=== PATIENT | female | born 1965 | race Caucasian/White ===

== ENCOUNTER → 2023-05-07 | Outpatient (CLI) | payer OTHER | LOC: LAB SHORT 17:13 | DX: N39.0 Urinary tract infection, site not specified (principal) | CPT/HCPCS: 87077; 87086; 87186 ==

== ENCOUNTER 2023-12-18 11:28 | Observation (INO) | payer OTHER ==
[~2023-12-18] VITALS: Ht 167.6 cm; Wt 89.5 kg
[2023-12-18 11:56] LABS: BASOPHILS ABSOLUTE AUTO 0.04 K/mm3 (0.00-0.23); BASOPHILS PERCENT AUTO 1 % (0-2); EOSINOPHILS ABSOLUTE AUTO 0.34 K/mm3 (0.00-0.68); EOSINOPHILS PERCENT AUTO 4 % (0-6); Hematocrit 45.3 % (33.0-51.0); Hemoglobin 15.1 g/dL (11.5-16.0); IMMATURE GRAN ABSOLUTE AUTO 0.02 K/mm3 (0.00-0.10); IMMATURE GRAN PERCENT AUTO 0 % (0-1); LYMPHOCYTES ABSOLUTE AUTO 2.65 K/mm3 (0.84-5.20); LYMPHOCYTES PERCENT AUTO 32 % (21-46); MONOCYTES ABSOLUTE AUTO 0.34 K/mm3 (0.16-1.47); MONOCYTES PERCENT AUTO 4 % (4-13); Mean Corpuscular HGB 30.3 pg (26.0-34.0); Mean Corpuscular HGB Conc 33.3 g/dL (31.5-36.5); Mean Corpuscular Volume 91 fL (80-100); Mean Platelet Volume 10.6 fL (9.1-12.4); NEUTROPHILS ABSOLUTE AUTO 4.79 K/mm3 (1.96-9.15); NEUTROPHILS PERCENT AUTO 59 % (41-73); Platelet Count 288 K/mm3 (150-400); RDW Coefficient Variation 14.6 % (11.7-14.2); RDW Standard Deviation 48.4 fL (35.1-46.3); Red Blood Cell Count 4.99 M/mm3 (3.80-5.20); White Blood Cell Count 8.18 K/mm3 (4.00-11.30)
[2023-12-18 12:18] LABS: Albumin/Globulin Ratio 0.9 (0.8-1.8); Bilirubin, Total 0.5 mg/dL (0.1-1.0); Bun/Creatinine Ratio 10.7 (12.0-20.0); Creatinine, Blood 1.21 mg/dL (0.40-1.00); Globulin, Blood 4.3 g/dL (2.2-4.0); Potassium, Blood 3.3 mmol/L (3.5-5.5); Total Protein, Blood 8.3 g/dL (6.4-8.2)
[2023-12-18] MEDS ORDERED: Acetaminophen 500 MG Tab PO ONE (13:05)
[2023-12-18] MEDS ORDERED: Nitroglycerin 0.4 MG SUBL SL PRN (13:05)
[2023-12-18] MEDS ORDERED: DOXAZOSIN MESYLA1 M2 PO (13:31)
[2023-12-18] MEDS ORDERED: DILTIAZEM 24HR240 M3 PO (13:31)
[2023-12-18] MEDS ORDERED: SPIRONOLACTONE25 MG PO (13:32)
[2023-12-18] MEDS ORDERED: FURO40 PO (13:32)
[2023-12-18] MEDS ORDERED: SYNTHROID150 MC1 PO (13:33)
[2023-12-18] MEDS ORDERED: Acetaminophen 325 MG TABLET PO PRN (15:25)
[2023-12-18] MEDS ORDERED: HydrALAZINE HCl 25 MG Tab PO PRN ×2 (15:30→16:10)
[2023-12-18 17:00] VITALS: BP 148/99
[2023-12-18] MEDS ORDERED: Furosemide 40 MG Tab PO SCH (17:00)
[2023-12-18] MEDS ORDERED: Doxazosin Mesylate 2 MG Tab PO SCH (18:00)
--- NOTE | 2023-12-18 18:42 | NUR ---
NEW ADMIT/SHIFT SUMMARY. PATIENT ADMITTED FROM ER AT 1700 FOR CHEST PAIN. PATIENT HAS BEEN HAVING HIGH BP. PATIENT DENIES CHEST PAIN AT THIS TIME. PATIENT STATES SHE IS HAVING AN INCREASINGLY WORSE MORALES. PATIENT IS A&OX4 AND ABLE TO MAKE NEEDS KNOWN. PATIENT IS ABLE TO TRANSFER INDEPENTLY. PATIENT IS ON TELE WITH SINUS RHYTHM 76 AT 1847. WILL CONTINUE TO MONITOR.
--- NOTE | 2023-12-18 18:47 | NUR ---
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
[2023-12-18 19:29] VITALS: BP 145/89
[2023-12-18] MEDS ORDERED: HydrALAZINE HCl 25 MG Tab PO SCH (21:00)
[2023-12-19 04:23] LABS: BASOPHILS ABSOLUTE AUTO 0.04 K/mm3 (0.00-0.23); BASOPHILS PERCENT AUTO 1 % (0-2); EOSINOPHILS ABSOLUTE AUTO 0.35 K/mm3 (0.00-0.68); EOSINOPHILS PERCENT AUTO 4 % (0-6); Hematocrit 40.1 % (33.0-51.0); Hemoglobin 13.6 g/dL (11.5-16.0); IMMATURE GRAN ABSOLUTE AUTO 0.02 K/mm3 (0.00-0.10); IMMATURE GRAN PERCENT AUTO 0 % (0-1); LYMPHOCYTES ABSOLUTE AUTO 2.66 K/mm3 (0.84-5.20); LYMPHOCYTES PERCENT AUTO 32 % (21-46); MONOCYTES ABSOLUTE AUTO 0.38 K/mm3 (0.16-1.47); MONOCYTES PERCENT AUTO 5 % (4-13); Mean Corpuscular HGB 30.5 pg (26.0-34.0); Mean Corpuscular HGB Conc 33.9 g/dL (31.5-36.5); Mean Corpuscular Volume 90 fL (80-100); Mean Platelet Volume 10.9 fL (9.1-12.4); NEUTROPHILS ABSOLUTE AUTO 4.98 K/mm3 (1.96-9.15); NEUTROPHILS PERCENT AUTO 59 % (41-73); Platelet Count 251 K/mm3 (150-400); RDW Coefficient Variation 14.7 % (11.7-14.2); RDW Standard Deviation 48.9 fL (35.1-46.3); Red Blood Cell Count 4.46 M/mm3 (3.80-5.20); White Blood Cell Count 8.43 K/mm3 (4.00-11.30)
[2023-12-19 04:52] LABS: Bun/Creatinine Ratio 11.4 (12.0-20.0); Creatinine, Blood 1.49 mg/dL (0.40-1.00)
--- NOTE | 2023-12-19 05:26 | NUR ---
SHIFT SUMMARY 58 YR F ADMITTED ON 12/18/23. FULL CODE. NO ACUTE CHANGES THIS SHIFT. PT HAS HAD NO C/O CHEST PAIN OR PRESSURE, SOB, PAIN OR DISCOMFORT. SHE HAS SLEPT FOR MOST OF THIS SHIFT. SHE IS A&O X 4 AND IS INDEPENDANT IN THE ROOM. BP STILL SLIGHTLY ELEVATED. WILL CONTINUE TO MONITOR. BED IN LOW POSITION AND CALL LIGHT IN REACH.
[2023-12-19 05:30] VITALS: BP 156/100
--- NOTE | 2023-12-19 05:58 | NUR ---
NURSE NOTE 0530 BP WAS 150/100. PRN HYDRALAZINE HAS A PERAMETER OF SBP > 160 SO NOT GIVEN. POTASSIUM IS 3.0 THIS A.M. HOSPITALIST NOTIFIED AND ORDER FOR POTASSIUM CHLORIDE 60 MG ONE TIME PUT IN.
[2023-12-19] MEDS ORDERED: Potassium Chloride 20 MEQ TabCR PO ONE (06:00)
[2023-12-19 07:31] VITALS: BP 162/100
[2023-12-19] MEDS ORDERED: Carvedilol 6.25 MG Tab PO SCH ×2 (09:00→17:00)
[2023-12-19] MEDS ORDERED: AmLODIPine Besylate 5 MG Tab PO SCH (09:00)
[2023-12-19] MEDS ORDERED: Enoxaparin 40 MG/0.4 ML SYR SC SCH (09:00)
[2023-12-19] MEDS ORDERED: Levothyroxine Sodium 0.15 MG Tab PO SCH (09:00)
[2023-12-19] MEDS ORDERED: Losartan Potassium 50 MG Tab PO SCH (09:00)
[2023-12-19] MEDS ORDERED: Spironolactone 25 MG Tab PO SCH (09:00)
[2023-12-19] MEDS ORDERED: dilTIAZem HCL 120 MG CAP.CD PO SCH ×2 (09:00)
[2023-12-19] MEDS ORDERED: Furosemide 40 MG Tab PO SCH (09:00)
--- NOTE | 2023-12-19 12:35 | NUR ---
1230- NOTIFIED DR. SEXTON OF PROLONGED QTC INTERVAL NOTIFICATION FROM TELE. SAID TO GET EKG NOW.
--- NOTE | 2023-12-19 12:38 | NUR ---
1237- THIS RN NOTIFIED DR. VARGAS THAT PT TAKES 150MG TRAZODONE PRN NIGHTLY FOR INSOMNIA AND PT IS REQUESTING IT TO BE ORDERED FOR HIS HOSPITAL STAY. SAID HE WILL ORDER IT FOR TONIGHT.
--- NOTE | 2023-12-19 13:13 | NUR ---
1310- NOTIFIED DR. SEXTON PT'S UX=[id number] AND IIP=[id number]. MS SAID SHE WILL REVIEW IT LATER AND PLACE IT IN CHART. MD AWARE EKG IS DONE.
[2023-12-19 15:02] VITALS: BP 151/91
[2023-12-19 17:58] VITALS: BP 150/99
--- NOTE | 2023-12-19 18:12 | NUR ---
SUMMARY- AAOX4. IND IN ROOM. PT DENIED ANY CHEST PAIN THIS SHIFT. NO ACUTE EVENTS BESIDES THE PROLONGED QTC INTERVAL AND EKG THIS SHIFT. PT ON RA. GOOD APPETITE.
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
[2023-12-19 19:34] VITALS: BP 136/90
--- NOTE | 2023-12-20 03:52 | NUR ---
SHIFT SUMMARY 58 YR F ADMITTED ON 12/18/23. FULL CODE. NO ACUTE CHANGES THIS SHIFT. PT HAS HAD NO C/O CHEST PAIN, DISCOMFORT, OR SOB THIS SHIFT. PER PRODUCTION COST ESTIMATOR QTC IS PROLONGED BY .56, SR @ 75. SLEEP STUDY IS CURRENTLY IN PROGRESS. PT CONTINUES TO BE A&O X 4 AND INDEPENDANT IN THE ROOM . WILL CONTINUE TO MONITOR.
[2023-12-20 04:10] VITALS: BP 138/84
[2023-12-20 05:55] LABS: Bun/Creatinine Ratio 14.6 (12.0-20.0); Calcium, Blood 9.4 mg/dL (8.5-10.1); Creatinine, Blood 1.44 mg/dL (0.40-1.00); Potassium, Blood 3.3 mmol/L (3.5-5.5)
[2023-12-20 07:26] VITALS: BP 142/90
[2023-12-20] MEDS ORDERED: AMLO5 PO (10:25)
[2023-12-20] MEDS ORDERED: Carvedilol12.5 MG PO (10:28)
[2023-12-20] MEDS ORDERED: HYDRA25 PO ×2 (10:31→10:32)
[2023-12-20] MEDS ORDERED: POTA10T PO (10:34)
--- NOTE | 2023-12-20 11:11 | NUR ---
1050- PT DC IN STABLE CONDITION. PT LEFT WITH FRIEND. PT LEFT WITH ALL BELONGINGS. PT GIVEN LAB ORDER FOR LABS IN X3 DAYS. ALL DC PAPERWORK SIGNED.
== END 2023-12-20 10:47 | disposition home or self-care (01) ==
LOC: ER 11:28 → MEDS 11:29 → ER 16:46 → MEDS 17:02
PROVIDERS: Physician Assistant; ADMIT Internal Medicine
DX: I16.0 Hypertensive urgency (principal); E87.6 Hypokalemia; D35.00 Benign neoplasm of unspecified adrenal gland; R07.89 Other chest pain; F17.290 Nicotine dependence, other tobacco product, uncomplicated; Z88.2 Allergy status to sulfonamides; Z88.5 Allergy status to narcotic agent; Z88.8 Allergy status to other drugs, medicaments and biological substances; Z79.899 Other long term (current) drug therapy
CPT/HCPCS: 36415; 71046; 80048; 80053; 83605; 83690; 84484; 85025; 93005; 93010; 94762; 96372; 99285-25; A9270; G0378; J1650

== ENCOUNTER 2024-03-28 18:46 | Emergency (ER) | payer OTHER ==
[~2024-03-28] VITALS: Ht 172.7 cm; Wt 81.7 kg
[~2024-03-28 18:46] MED LIST: AMLO5 PO; Carvedilol12.5 MG PO; DILTIAZEM 24HR240 M3 PO; DOXAZOSIN MESYLA1 M2 PO; FURO40 PO; HYDRA25 PO; POTA10T PO; SPIRONOLACTONE25 MG PO; SYNTHROID150 MC1 PO
[2024-03-28] MEDS ORDERED: NiCARdipine HCL 50 MG in NS 250 ML IV SCH (19:05)
[2024-03-28] MEDS ORDERED: propofoL 100 ML IV ONE (19:09)
[2024-03-28 19:13] LABS: Calcium, Ionized (POC) 1.17 mmol/L (1.10-1.46); Chloride (POC) 102 mmol/L (98-108); Creatinine (POC) 1.3 mg/dL (0.6-1.0); Glucose (ISTAT POC) 175 mg/dL (70-99); Hemoglobin (POC) 14.6 g/dL (12.0-16.0); Potassium (POC) 2.8 mmol/L (3.5-5.5); Sodium (POC) 142 mmol/L (135-148); Total CO2 (POC) 28 mmol/L (21-32)
[2024-03-28 19:15] LABS: BASOPHILS ABSOLUTE AUTO 0.09 K/mm3 (0.00-0.23); BASOPHILS PERCENT AUTO 1 % (0-2); EOSINOPHILS ABSOLUTE AUTO 0.46 K/mm3 (0.00-0.68); EOSINOPHILS PERCENT AUTO 3 % (0-6); Hematocrit 42.9 % (33.0-51.0); Hemoglobin 14.5 g/dL (11.5-16.0); IMMATURE GRAN PERCENT AUTO 1 % (0-1); LYMPHOCYTES ABSOLUTE AUTO 5.08 K/mm3 (0.84-5.20); LYMPHOCYTES PERCENT AUTO 37 % (21-46); MONOCYTES ABSOLUTE AUTO 0.66 K/mm3 (0.16-1.47); MONOCYTES PERCENT AUTO 5 % (4-13); Mean Corpuscular HGB Conc 33.8 g/dL (31.5-36.5); Mean Corpuscular Volume 92 fL (80-100); Mean Platelet Volume 10.3 fL (9.1-12.4); NEUTROPHILS ABSOLUTE AUTO 7.32 K/mm3 (1.96-9.15); NEUTROPHILS PERCENT AUTO 53 % (41-73); Platelet Count 470 K/mm3 (150-400); RDW Standard Deviation 43.3 fL (35.1-46.3); Red Blood Cell Count 4.67 M/mm3 (3.80-5.20); White Blood Cell Count 13.71 K/mm3 (4.00-11.30)
[2024-03-28 19:25] LABS: International Normalized Ratio 0.97; Prothrombin Time Results 10.4 Sec (9.7-11.5)
[2024-03-28] MEDS ORDERED: Potassium Chl 20MEQ/Water100ML 100 ML IV SCH (19:25)
[2024-03-28 19:32] LABS: Alanine Aminotransfer (ALT/SGP 41 U/L (12-78); Albumin, Blood 3.9 g/dL (3.4-5.0); Albumin/Globulin Ratio 0.9 (0.8-1.8); Alk Phos 138 U/L (50-136); Anion Gap 10 mmol/L (3-11); Aspartate Aminotrans (AST/SGOT 38 U/L (12-37); Bilirubin, Total 0.5 mg/dL (0.1-1.0); Blood Urea Nitrogen 11 mg/dL (8-24); Bun/Creatinine Ratio 9.7 (12.0-20.0); CO2, Blood 27 mmol/L (21-32); Calcium, Blood 9.6 mg/dL (8.5-10.1); Chloride, Blood 106 mmol/L (98-108); Creatinine, Blood 1.13 mg/dL (0.40-1.00); Ethanol (Alcohol), Blood, Med <3 mg/dL; Globulin, Blood 4.4 g/dL (2.2-4.0); Glomerular Filtration Rate 57 (60-); Glucose, Blood 167 mg/dL (70-99); Potassium, Blood 3.1 mmol/L (3.5-5.5); Sodium, Blood 140 mmol/L (136-145); Total Protein, Blood 8.3 g/dL (6.4-8.2)
[2024-03-28 19:36] LABS: U Amphetamine Screen DETECTED; U Barbituate Screen Not Detected; U Benzodiazapine Screen Not Detected; U Buprenorphine Screen Not Detected; U Cannabinoids Screen Not Detected; U Cocaine Screen Not Detected; U Methadone Screen Not Detected; U Methamphetamine Screen DETECTED; U Opiates Screen Not Detected; U Oxycodone Screen Not Detected; U Phencyclidine Screen Not Detected
[2024-03-28] MEDS ORDERED: NS 1,000 ML IV ONE (19:51)
[2024-03-28] MEDS ORDERED: Sodium Chloride 3% 250 ML IV ONE (20:10)
[2024-03-28 20:30] VITALS: BP 149/98
[2024-03-28] MEDS ORDERED: SuccINYLCHOLINE Chloride 200 MG/10 ML 10MLSYR IV ONE (21:50)
[2024-03-28] MEDS ORDERED: Midazolam HCl 1MG / ML 2ML Vial IM ONE (21:50)
== END 2024-03-28 20:50 | disposition short-term general hospital (02) ==
LOC: ER 18:46
PROVIDERS: Student in an Organized Health Care Education/Training Program
DX: I61.4 Nontraumatic intracerebral hemorrhage in cerebellum (principal); I16.0 Hypertensive urgency; I10 Essential (primary) hypertension; Z88.2 Allergy status to sulfonamides; Z88.5 Allergy status to narcotic agent; Z88.8 Allergy status to other drugs, medicaments and biological substances; Z79.899 Other long term (current) drug therapy; Z79.890 Hormone replacement therapy
CPT/HCPCS: 51702; 70450; 71045; 80047; 80053; 80320; 84484; 85014; 85025; 85610; 85730; 93005; 93010; 96365-59; 96367-59; 99291-25; 99292; J0330; J2250; J2704; J3480; J7030; J7050

== ENCOUNTER 2024-05-09 23:54 | Emergency (ER) | payer OTHER ==
[~2024-05-09] VITALS: Ht 167.6 cm; Wt 88.5 kg
[2024-05-10] MEDS ORDERED: Ondansetron HCl 2 MG / ML 2ML Vial IV ONE ×2 (01:45→08:40)
[2024-05-10 01:46] LABS: Alanine Aminotransfer (ALT/SGP 54 U/L (12-78); Albumin, Blood 3.5 g/dL (3.4-5.0); Alk Phos 117 U/L (50-136); Anion Gap 11 mmol/L (3-11); Aspartate Aminotrans (AST/SGOT 33 U/L (12-37); Bilirubin, Total 0.5 mg/dL (0.1-1.0); Blood Urea Nitrogen 14 mg/dL (8-24); CO2, Blood 26 mmol/L (21-32); Calcium, Blood 9.8 mg/dL (8.5-10.1); Chloride, Blood 109 mmol/L (98-108); Creatinine, Blood 0.82 mg/dL (0.40-1.00); Ethanol (Alcohol), Blood, Med <3 mg/dL; Globulin, Blood 3.5 g/dL (2.2-4.0); Glomerular Filtration Rate 83 (60-); Glucose, Blood 96 mg/dL (70-99); Potassium, Blood 3.8 mmol/L (3.5-5.5); Sodium, Blood 142 mmol/L (136-145)
[2024-05-10 01:49] LABS: BASOPHILS ABSOLUTE AUTO 0.03 K/mm3 (0.00-0.23); BASOPHILS PERCENT AUTO 0 % (0-2); EOSINOPHILS PERCENT AUTO 3 % (0-6); Hematocrit 45.3 % (33.0-51.0); Hemoglobin 15.1 g/dL (11.5-16.0); IMMATURE GRAN ABSOLUTE AUTO 0.05 K/mm3 (0.00-0.10); IMMATURE GRAN PERCENT AUTO 1 % (0-1); LYMPHOCYTES ABSOLUTE AUTO 2.05 K/mm3 (0.84-5.20); LYMPHOCYTES PERCENT AUTO 28 % (21-46); MONOCYTES ABSOLUTE AUTO 0.56 K/mm3 (0.16-1.47); MONOCYTES PERCENT AUTO 8 % (4-13); Mean Corpuscular HGB 30.2 pg (26.0-34.0); Mean Corpuscular HGB Conc 33.3 g/dL (31.5-36.5); Mean Corpuscular Volume 91 fL (80-100); Mean Platelet Volume 12.1 fL (9.1-12.4); NEUTROPHILS ABSOLUTE AUTO 4.42 K/mm3 (1.96-9.15); NEUTROPHILS PERCENT AUTO 61 % (41-73); Platelet Count 262 K/mm3 (150-400); RDW Coefficient Variation 12.8 % (11.7-14.2); RDW Standard Deviation 42.2 fL (35.1-46.3); White Blood Cell Count 7.31 K/mm3 (4.00-11.30)
[2024-05-10 03:24] LABS: Source, Urine Clean Catch
[2024-05-10 03:29] LABS: Bilirubin, Urine Neg (Neg); Blood, Urine Neg (Neg); Glucose Qualitative, Urine Neg (Neg); Ketones, Urine 2+ (Neg); Leukocyte Esterase, Urine Neg (Neg); Nitrite, Urine Neg (Neg); Protein, Urine 1+ (Neg); Urobilinogen, Urine NORM (Normal)
[2024-05-10 03:32] LABS: Appearance, Urine Clear (Clear); Color, Urine Yellow (P-Yellow)
[2024-05-10 03:46] LABS: U Amphetamine Screen Not Detected; U Barbituate Screen Not Detected; U Benzodiazapine Screen Not Detected; U Buprenorphine Screen Not Detected; U Cannabinoids Screen Not Detected; U Cocaine Screen Not Detected; U Methadone Screen Not Detected; U Methamphetamine Screen Not Detected; U Opiates Screen Not Detected; U Oxycodone Screen Not Detected; U Phencyclidine Screen Not Detected
[2024-05-10] MEDS ORDERED: Meclizine HCl 25 MG Tab PO ONE (05:30)
[2024-05-10] MEDS ORDERED: NS 1,000 ML IV SCH (05:35)
[2024-05-10 22:00] VITALS: BP 151/95
== END 2024-05-10 22:52 | disposition home or self-care (01) ==
LOC: ER 23:54
PROVIDERS: Student in an Organized Health Care Education/Training Program
DX: R42 Dizziness and giddiness (principal); I12.9 Hypertensive chronic kidney disease with stage 1 through stage 4 chronic kidney disease, or unspecified chronic kidney disease; N18.30 Chronic kidney disease, stage 3 unspecified; F15.90 Other stimulant use, unspecified, uncomplicated; Z86.79 Personal history of other diseases of the circulatory system; Z98.890 Other specified postprocedural states; Z88.0 Allergy status to penicillin; Z88.5 Allergy status to narcotic agent; Z88.8 Allergy status to other drugs, medicaments and biological substances; Z79.899 Other long term (current) drug therapy; Z79.890 Hormone replacement therapy
CPT/HCPCS: 70450; 70551; 80053; 80320; 82947; 85025; 93005; 93010; 96374; 96376; 99285-25; A9270; J2405; P9612

== ENCOUNTER 2024-05-23 09:19 | Emergency (ER) | payer OTHER ==
[~2024-05-23] VITALS: Ht 167.6 cm; Wt 68.0 kg
[2024-05-23 10:00] LABS: BASOPHILS ABSOLUTE AUTO 0.03 K/mm3 (0.00-0.23); BASOPHILS PERCENT AUTO 0 % (0-2); EOSINOPHILS ABSOLUTE AUTO 0.28 K/mm3 (0.00-0.68); EOSINOPHILS PERCENT AUTO 4 % (0-6); Hematocrit 40.5 % (33.0-51.0); Hemoglobin 13.7 g/dL (11.5-16.0); IMMATURE GRAN ABSOLUTE AUTO 0.02 K/mm3 (0.00-0.10); IMMATURE GRAN PERCENT AUTO 0 % (0-1); LYMPHOCYTES ABSOLUTE AUTO 2.38 K/mm3 (0.84-5.20); LYMPHOCYTES PERCENT AUTO 29 % (21-46); MONOCYTES ABSOLUTE AUTO 0.47 K/mm3 (0.16-1.47); MONOCYTES PERCENT AUTO 6 % (4-13); Mean Corpuscular HGB 30.7 pg (26.0-34.0); Mean Corpuscular HGB Conc 33.8 g/dL (31.5-36.5); Mean Corpuscular Volume 91 fL (80-100); Mean Platelet Volume 11.4 fL (9.1-12.4); NEUTROPHILS ABSOLUTE AUTO 4.92 K/mm3 (1.96-9.15); NEUTROPHILS PERCENT AUTO 61 % (41-73); Platelet Count 258 K/mm3 (150-400); RDW Coefficient Variation 12.8 % (11.7-14.2); RDW Standard Deviation 42.3 fL (35.1-46.3); Red Blood Cell Count 4.46 M/mm3 (3.80-5.20)
[2024-05-23 10:20] LABS: Albumin, Blood 3.2 g/dL (3.4-5.0); Bilirubin, Total 0.5 mg/dL (0.1-1.0); Bun/Creatinine Ratio 11.9 (12.0-20.0); Calcium, Blood 9.4 mg/dL (8.5-10.1); Creatinine, Blood 0.92 mg/dL (0.40-1.00); Globulin, Blood 3.3 g/dL (2.2-4.0); Potassium, Blood 3.7 mmol/L (3.5-5.5); Total Protein, Blood 6.5 g/dL (6.4-8.2)
[2024-05-23 10:58] LABS: Source, Urine Straight Cath
[2024-05-23 12:36] LABS: Appearance, Urine Hazy (Clear); Bilirubin, Urine Neg (Neg); Blood, Urine Neg (Neg); Color, Urine Yellow (P-Yellow); Glucose Qualitative, Urine Neg (Neg); Ketones, Urine Neg (Neg); Leukocyte Esterase, Urine 1+ (Neg); Nitrite, Urine Neg (Neg); Protein, Urine 1+ (Neg); Specific Gravity, Urine 1.025 (1.003-1.022); Urobilinogen, Urine NORM (Normal)
[2024-05-23 13:46] LABS: Mucus Heavy (0-Heavy)
[2024-05-23 13:47] LABS: Bacteria Many /hpf; Calcium Oxalate Crystals Mod /hpf; Squamous Epithelial Cells Many /hpf (Few); Transitional Epithelial Cells Rare /hpf (0-Rare)
[2024-05-23 13:48] LABS: Red Blood Cells, Urine 0-2 /hpf (0-2)
[2024-05-23] MEDS ORDERED: LOSA50 PO (13:53)
[2024-05-23] MEDS ORDERED: Losartan Potassium 50 MG Tab PO ONE (13:55)
[2024-05-23 14:17] VITALS: BP 159/90
== END 2024-05-23 14:57 | disposition home or self-care (01) ==
LOC: ER 09:19
PROVIDERS: Emergency Medicine
DX: S16.1XXA Strain of muscle, fascia and tendon at neck level, initial encounter (principal); S09.90XA Unspecified injury of head, initial encounter; I69.354 Hemiplegia and hemiparesis following cerebral infarction affecting left non-dominant side; I12.9 Hypertensive chronic kidney disease with stage 1 through stage 4 chronic kidney disease, or unspecified chronic kidney disease; N18.30 Chronic kidney disease, stage 3 unspecified; G43.909 Migraine, unspecified, not intractable, without status migrainosus; M19.90 Unspecified osteoarthritis, unspecified site; F17.210 Nicotine dependence, cigarettes, uncomplicated; Z76.0 Encounter for issue of repeat prescription; Z88.2 Allergy status to sulfonamides; Z88.5 Allergy status to narcotic agent; Z88.8 Allergy status to other drugs, medicaments and biological substances; Z79.890 Hormone replacement therapy; W18.30XA Fall on same level, unspecified, initial encounter
CPT/HCPCS: 70450; 72125; 80053; 81001; 85025; 87077; 87086; 87186; 93005; 93010; 99284-25; A9270; P9612

== ENCOUNTER 2024-06-04 20:14 | Emergency (ER) | payer OTHER ==
[~2024-06-04] VITALS: Ht 170.2 cm; Wt 81.7 kg
[~2024-06-04 20:14] MED LIST changes: +LOSA50 PO
[2024-06-04 20:23] VITALS: BP 136/86
[2024-06-04] MEDS ORDERED: LORazepam 2 MG/ML 1ML Injection IV ONE (20:35)
[2024-06-04 20:41] LABS: BASOPHILS ABSOLUTE AUTO 0.04 K/mm3 (0.00-0.23); BASOPHILS PERCENT AUTO 1 % (0-2); EOSINOPHILS ABSOLUTE AUTO 0.36 K/mm3 (0.00-0.68); EOSINOPHILS PERCENT AUTO 6 % (0-6); Hemoglobin 12.5 g/dL (11.5-16.0); IMMATURE GRAN ABSOLUTE AUTO 0.01 K/mm3 (0.00-0.10); IMMATURE GRAN PERCENT AUTO 0 % (0-1); LYMPHOCYTES ABSOLUTE AUTO 2.06 K/mm3 (0.84-5.20); LYMPHOCYTES PERCENT AUTO 33 % (21-46); MONOCYTES ABSOLUTE AUTO 0.39 K/mm3 (0.16-1.47); MONOCYTES PERCENT AUTO 6 % (4-13); Mean Corpuscular HGB Conc 32.9 g/dL (31.5-36.5); Mean Corpuscular Volume 91 fL (80-100); Mean Platelet Volume 11.5 fL (9.1-12.4); NEUTROPHILS ABSOLUTE AUTO 3.34 K/mm3 (1.96-9.15); NEUTROPHILS PERCENT AUTO 54 % (41-73); Platelet Count 243 K/mm3 (150-400); Red Blood Cell Count 4.17 M/mm3 (3.80-5.20)
[2024-06-04 20:59] LABS: Source, Urine Straight Cath
[2024-06-04 21:04] LABS: Bilirubin, Total 0.6 mg/dL (0.1-1.0); Bun/Creatinine Ratio 8.8 (12.0-20.0); Calcium, Blood 9.2 mg/dL (8.5-10.1); Creatinine, Blood 1.02 mg/dL (0.40-1.00); Globulin, Blood 3.1 g/dL (2.2-4.0); Potassium, Blood 4.1 mmol/L (3.5-5.5); Total Protein, Blood 6.1 g/dL (6.4-8.2)
[2024-06-04 21:06] LABS: Appearance, Urine Hazy (Clear); Bilirubin, Urine Neg (Neg); Blood, Urine Neg (Neg); Color, Urine Yellow (P-Yellow); Glucose Qualitative, Urine Neg (Neg); Ketones, Urine Neg (Neg); Leukocyte Esterase, Urine Neg (Neg); Nitrite, Urine Neg (Neg); Protein, Urine 1+ (Neg); Specific Gravity, Urine 1.025 (1.003-1.022); Urobilinogen, Urine NORM (Normal)
[2024-06-04 21:15] LABS: Bacteria Many /hpf; Red Blood Cells, Urine Not Seen /hpf (0-2); Squamous Epithelial Cells Few /hpf (Few); White Blood Cells, Urine 0-2 /hpf (0-5)
[2024-06-04 22:09] LABS: CORONAVIRUS COVID-19 AG Negative (NEGATIVE); INFLUENZA A AG Negative (NEGATIVE); INFLUENZA B AG Negative (NEGATIVE)
== END 2024-06-05 03:37 | disposition home or self-care (01) ==
LOC: ER 20:14
PROVIDERS: Emergency Medicine
DX: F20.2 Catatonic schizophrenia (principal); F41.9 Anxiety disorder, unspecified; I12.9 Hypertensive chronic kidney disease with stage 1 through stage 4 chronic kidney disease, or unspecified chronic kidney disease; N18.30 Chronic kidney disease, stage 3 unspecified; I62.9 Nontraumatic intracranial hemorrhage, unspecified; Z88.2 Allergy status to sulfonamides; Z88.8 Allergy status to other drugs, medicaments and biological substances; Z88.5 Allergy status to narcotic agent; Z79.890 Hormone replacement therapy; Z79.899 Other long term (current) drug therapy
CPT/HCPCS: 80053; 81001; 85025; 87077; 87086; 87186; 87428-QW; 93005; 93010; 96374; 99285-25; J2060

== ENCOUNTER 2024-06-10 06:28 | Emergency (ER) | payer OTHER ==
[~2024-06-10] VITALS: Ht 167.6 cm; Wt 81.7 kg
[2024-06-10] MEDS ORDERED: ONDANSETRON ODT16 MG PO (06:39)
[2024-06-10] MEDS ORDERED: EUTHYROX175 MC1 PO (06:39)
[2024-06-10] MEDS ORDERED: CLONIDINE TD (06:39)
[2024-06-10] MEDS ORDERED: CARVEDILOL6.25 MG PO (06:40)
[2024-06-10] MEDS ORDERED: ATOR40TA PO (06:40)
[2024-06-10] MEDS ORDERED: GABA100 PO (06:40)
[2024-06-10 06:50] LABS: BASOPHILS ABSOLUTE AUTO 0.03 K/mm3 (0.00-0.23); BASOPHILS PERCENT AUTO 0 % (0-2); EOSINOPHILS ABSOLUTE AUTO 0.24 K/mm3 (0.00-0.68); EOSINOPHILS PERCENT AUTO 4 % (0-6); Hematocrit 38.6 % (33.0-51.0); IMMATURE GRAN ABSOLUTE AUTO 0.01 K/mm3 (0.00-0.10); IMMATURE GRAN PERCENT AUTO 0 % (0-1); LYMPHOCYTES ABSOLUTE AUTO 2.64 K/mm3 (0.84-5.20); LYMPHOCYTES PERCENT AUTO 39 % (21-46); MONOCYTES ABSOLUTE AUTO 0.44 K/mm3 (0.16-1.47); MONOCYTES PERCENT AUTO 6 % (4-13); Mean Corpuscular HGB 30.4 pg (26.0-34.0); Mean Corpuscular HGB Conc 33.7 g/dL (31.5-36.5); Mean Corpuscular Volume 90 fL (80-100); Mean Platelet Volume 11.3 fL (9.1-12.4); NEUTROPHILS ABSOLUTE AUTO 3.47 K/mm3 (1.96-9.15); NEUTROPHILS PERCENT AUTO 51 % (41-73); Platelet Count 277 K/mm3 (150-400); RDW Coefficient Variation 13.1 % (11.7-14.2); Red Blood Cell Count 4.27 M/mm3 (3.80-5.20); White Blood Cell Count 6.83 K/mm3 (4.00-11.30)
[2024-06-10 07:06] LABS: Albumin, Blood 3.1 g/dL (3.4-5.0); Bilirubin, Total 0.4 mg/dL (0.1-1.0); Bun/Creatinine Ratio 7.6 (12.0-20.0); Calcium, Blood 9.5 mg/dL (8.5-10.1); Creatinine, Blood 0.79 mg/dL (0.40-1.00); Globulin, Blood 3.1 g/dL (2.2-4.0); Potassium, Blood 3.6 mmol/L (3.5-5.5); Total Protein, Blood 6.2 g/dL (6.4-8.2)
[2024-06-10 08:14] VITALS: BP 169/106
== END 2024-06-10 08:59 | disposition home or self-care (01) ==
LOC: ER 06:28
PROVIDERS: Emergency Medicine
DX: L57.0 Actinic keratosis (principal); R42 Dizziness and giddiness; R22.0 Localized swelling, mass and lump, head; F17.210 Nicotine dependence, cigarettes, uncomplicated; I12.9 Hypertensive chronic kidney disease with stage 1 through stage 4 chronic kidney disease, or unspecified chronic kidney disease; N18.30 Chronic kidney disease, stage 3 unspecified; G43.909 Migraine, unspecified, not intractable, without status migrainosus; M19.90 Unspecified osteoarthritis, unspecified site; Z79.899 Other long term (current) drug therapy; Z88.2 Allergy status to sulfonamides; Z88.5 Allergy status to narcotic agent; Z88.8 Allergy status to other drugs, medicaments and biological substances
CPT/HCPCS: 70450; 80053; 85025